=== PATIENT | male | born 1955 | race Caucasian/White ===

== ENCOUNTER 2018-08-24 10:01 | Emergency (ER) | payer MEDICARE ==
[~2018-08-24] VITALS: Ht 177.8 cm; Wt 86.4 kg
[2018-08-24] MEDS ORDERED: GLIP2.5ER PO (10:25)
[2018-08-24] MEDS ORDERED: METF-960 PO (10:25)
[2018-08-24] MEDS ORDERED: LISI-660 PO (10:25)
[2018-08-24 10:29] LABS: GLUCOSE,POINT OF CARE 189 MG/DL (70-110)
[2018-08-24] MEDS: DiphenhydrAMINE HCL 25 MG CAPSULE PO ONE (12:06)
[2018-08-24] MEDS: PRAMOXINE HCL/BENZYL ALCOHOL 1% 35 GM GEL TP ONE (12:25)
[2018-08-24] MEDS: LIDOCAINE/PRILOCAINE 2.5% 30 GM CREAM TP ONE (12:25)
[2018-08-24 12:46] VITALS: BP 142/74
== END 2018-08-24 13:14 | disposition home or self-care (01) ==
LOC: EMS 10:01
DX: R21 Rash and other nonspecific skin eruption (principal); E11.9 Type 2 diabetes mellitus without complications; Z79.84 Long term (current) use of oral hypoglycemic drugs; Z79.899 Other long term (current) drug therapy